=== PATIENT | male | born 1975 | race Caucasian/White ===

== ENCOUNTER 2017-02-20 07:56 | Emergency (ER) | payer BC ==
[~2017-02-20] VITALS: Ht 172.7 cm; Wt 78.9 kg
[2017-02-20 08:10] VITALS: Ht 172.7 cm; Wt 78.9 kg
[2017-02-20 11:23] VITALS: BP 110/61
== END 2017-02-20 11:23 | disposition home or self-care (01) ==
LOC: ED 07:56
DX: B34.9 Viral infection, unspecified (principal); F17.210 Nicotine dependence, cigarettes, uncomplicated; Z88.0 Allergy status to penicillin; Z71.6 Tobacco abuse counseling
CPT/HCPCS: 99406